=== PATIENT | female | born 1945 | race Caucasian/White ===

== ENCOUNTER 2016-04-25 16:19 | Observation (INO) | payer MEDICARE ==
[~2016-04-25] VITALS: Ht 180.3 cm; Wt 75.3 kg
--- NOTE | 2016-04-25 16:26 | ED.REPORT ---
HPI-Stroke / CVA Apr 25, 2016 ED Provider: Tiago Mahajan MD A 70 year old female with a history of HTN presents to the ED via EMS with AMS. Per EMS, Pt was last seen normal at 1430 by co-workers at the [email or web address] that she works at. At 1500, her friend was talking with her on the phone and noticed slurred speech in the patient. The friend went to her work and found her leaning over her desk and unresponsive. The patient reports that she does not know why she is in the ED. Per daughter, patient has never experienced symptoms like this before and has no history of stroke or NV, but her father had a NV at a young age. It is difficult to obtain history due to patient condition. Upon further questioning the patient admits to taking 10 tablets of 50 mg tramadol and describes this as no suicide attempt and something that she would typically do. She denies any other narcotic use. Nursing Notes Stated Complaint: WEAKNESS, MENTAL STATUS CHANGE Nursing Notes Reviewed: Yes Allergies: Coded Allergies: No Known Allergies (Unverified , 04/25/16) General Time Seen by Provider: 16:39 Chief Complaint Other (AMS) Hx Obtained From: Patient, EMS Unable to Obtain Hx: Mental status Arrived By: Ambulance Time last known well Patient was last seen as normal by co-workers at 1430 today. Sudden in Onset?: Yes Symptom Duration: Since onset Progression Since Onset: Unchanged Recent Healthcare: No recent doctor visit Similar Sx Previous: No Risk Factors )( TPA Administration/Criteria Stroke Thrombolytic Therapy : TPA Considered: Yes TPA Administered Intravenously: No, exclusion criteria (NIH stroke scale 0) NIH Stroke Scale Level of Consciousness: Alert and responsive (0) Ask Month & Age: Both questions right (0) Open/Close Eyes/Hand Automotive Accessory Installer: Performs both tasks (0) Horizontal EO Movements: None (0) Visual Pearson: No visual loss (0) Facial Palsy: Normal symmetry (0) Right Arm Motor Drift (10s): No drift 10 sec (0) Left Arm Motor Drift (10s): No drift 10 sec (0) Right Leg Motor Drift (5s): No drift 5 sec (0) Left Leg Motor Drift (5s): No drift 5 sec (0) Limb Ataxia FNF/Heel-Lauren: No ataxia (0) Sensation (Arms/Legs/Face): No sensory loss (0) Language Aphasia: No aphasia, normal (0) Dysarthria: No dysarthria, normal (0) Extinction/Inattention: No exctinct/inattent (0) (Extinction not testable.) NIHSS Score: 0 Time NIHSS Performed: 16:41 Date NIHSS Performed: Apr 25, 2016 Past Medical History Past Medical History No history of NV. Reports: Hypertension Past Surgical History None reported. Family History Father had NV at young age. Social History Other Social History: Good social support Occupation Works at [email or web address]. Review of Systems Unable to Obtain ROS Mental status Constitutional: Denies: Chills, Fever, Lethargy Cardiovascular: Denies: Chest pain GI: Denies: Abdominal pain Complete sys rev & neg: except as marked. Physical Exam Initial Vital Signs Vital Signs (First) Date Time Temp Pulse Resp B/P Pulse Ox O2 Delivery O2 Flow Rate FiO2 04/25/16 16:35 36.7 76 15 156/63 100 Nasal Cannula 2 Initial VS: Reviewed General/Constitutional: Awake GCS 14 Head / Eyes: Atraumatic, Normocephalic Pupils are small. Neck: Atraumatic, Full range of motion Respiratory / Chest: Atraumatic, Breath sounds NL, Breath sounds = bilat, No respiratory distress, No rales, No rhonchi, No wheezing Cardiovascular: Heart rate NL, Regular rhythm, Heart sounds NL, No murmurs Neuro: Psychomotor retardation. Slow to respond. See NIH stroke scale in Risk. ENT: Atraumatic, Airway patent, Mucous membranes moist Abdomen: Atraumatic, Soft, No guarding, No rebound Upper Extremity / MS: Atraumatic, Non-tender Lower Extremity / Pelvis / MS: Atraumatic, Non-tender Skin: Atraumatic, Color NL, No rash, Warm, Dry Interpretation & Diagnostics Lab Results Interpretation Result Diagram: 04/25/16 1615 04/25/16 1615 Test 04/25/16 16:15 04/25/16 16:48 White Blood Count 13.7th/mm3 (3.8-10.1) Red Blood Count 4.66mil/mm3 (3.90-5.20) Hemoglobin 14.6g/dL (12.0-15.6) Hematocrit 44.1% (35.0-46.0) Mean Corpuscular Volume 94.6fL (81-100) Mean Corpuscular Hemoglobin 31.3pg (27.0-35.0) Mean Corpuscular Hemoglobin Concent 33.1% (32.0-37.0) Red Cell Distribution Width 12.8% (12.3-15.4) Platelet Count 289bil/L (150-400) Neutrophils (%) (Auto) 69.5% (40-74) Lymphocytes (%) (Auto) 21.2% (14-46) Monocytes (%) (Auto) 7.5% (4-12) Eosinophils (%) (Auto) 1.1% (0-5) Basophils (%) (Auto) 0.3% (0-3) Prothrombin Time 10.0sec (8.1-12.5) Prothromb Time International Ratio 0.94ratio Activated Partial Thromboplast Time 23.8sec (22.8-33.0) Sodium Level 140mEq/L (134-144) Potassium Level 3.6mEq/L (3.5-5.2) Chloride Level 99mEq/L (97-108) Carbon Dioxide Level 28mmol/L (18-29) Blood Urea Nitrogen 23mg/dL (8-27) Creatinine 1.15mg/dL (0.57-1.00) Estimat Glomerular Filtration Rate 67mL/min (>59) Glucose Level 98mg/dL (60-99) Calcium Level 9.0mg/dL (8.5-10.1) Total Bilirubin 0.2mg/dL (0.0-1.2) Aspartate Amino Transf (AST/SGOT) 24U/L (0-50) Alanine Aminotransferase (ALT/SGPT) 26U/L (0-32) Alkaline Phosphatase 87U/L (25-165) Troponin T < 0.010ug/L (0.0-0.011) Total Protein 6.9g/dL (6.4-8.4) Albumin 4.1g/dL (3.4-5.0) Alcohol, Quantitative < 10mg/dL (0-10) Urine Color Yellow (YELLOW) Urine Appearance Clear (CLEAR,HAZY) Urine pH 7.0 (5.0-8.0) Urine Specific [place] 1.015 (1.003-1.035) Urine Protein Negativemg/dL (NEG,TRACE) Urine Glucose (UA) Negativemg/dL (NEGATIVE) Urine Ketones Negativemg/dL (NEGATIVE) Urine Occult Blood Negative (NEGATIVE) Urine Nitrite Negative (NEGATIVE) Urine Bilirubin Negative (NEGATIVE) Urine Urobilinogen Normalmg/dL (NORMAL) Urine Leukocyte Esterase Trace (NEGATIVE) Urine RBC 0-2/hpf (0-2) Urine WBC 0-5/hpf (0-5) Urine Epithelial Cells Few/hpf (NONE-MOD) Urine Crystals None seen (NONE SEEN) Urine Bacteria Few/hpf (NONE-FEW) Urine Hyaline Casts Occasional/lpf (NONE) Urine Granular Casts Occasional (NONE SEEN) Urine Waxy Casts None seen (NONE SEEN) Urine Red Blood Cell Casts None seen (NONE SEEN) Urine White Blood Cell Casts None seen (NONE SEEN) Urine Mucus None seen (None Seen) Urine Trichomonas None seen (NONE SEEN) Urine Yeast None (NONE SEEN) Urinalysis Comment None Urine Culture Reflexed Indicated Urine Opiates Screen Negative Urine Methadone Screen Negative Urine Barbiturates Screen Negative Urine Amphetamines Screen Negative Urine Benzodiazepines Screen Negative Urine Cocaine Metabolite Screen Negative Urine Cannabinoids Screen Negative Lab Results Interpretation: CT Brain (TPA) Interpreted by Radiologist. IMPRESSION: No acute intracranial abnormality. Findings relayed to Dr. Mahajan via ER front desk worker staff Nancy on 04.25.16 at 1645 hrs. This study fulfills neurological imaging criteria for inclusion or exclusion of acute stroke therapies based on available published neurological guidelines. Dictated by: Shantelle Linda M.D. on 04/25/2016 at 16:45 Approved by: Shantelle Linda M.D. on 04/25/2016 at 16:47 General Lab Results Interp 1: Labs reviewed ECG Interpretation ECG Interpretation: Sinus rhytm. Rate is 76. Nonspecific T abnormalities, anterior leads. Time: 16:50 Interpreted by: ED physician Re-Eval/Medical Decision Source of Hx: Old records, EMS Re-Evaluation/Progress #1: Time of Eval: 17:03 Re-Evaluation/Progress Note: Rechecked patient. Patient reports taking [address] Cindy Mendieta prescribed 120 pills every 30 days, 4 pills per day. Current bottle has 27 tablets remaining and it was filled on the of this month. Re-Evaluation/Progress #2: Time of Eval: 17:22 Re-Evaluation/Progress Note: Pt updated of plans for admission. She is improving. Consultation #1: Call Returned at: 17:53 Note: Discussed patient case with Dr. Cindy Mendieta's assistant softball coach, explaining that she is not taking medication regiment as directed. Consultation #2: Referral / Consult Name: Neal Trotter MD Consulted With: Hospitalist Call Returned at: 18:04 Hot Strip Mill Inspector: Will see patient, Agrees with eval, Agrees with plan, Accepts admit Counseled Regarding: Diagnosis, Lab results, Need for admission Patient Discharge & Departure Impression: Primary Impression: Overdose Encounter type: initial encounter Injury intent: undetermined intent Qualified Code: T50.904A - Poisoning by unspecified drugs, medicaments and biological substances, undetermined, initial encounter Disposition: ADMITTED TO HOSPITAL Discharge Condition All VS Reviewed: Yes Scribe Attestation Portions of this note were transcribed by Sae Sanchez and Nena Walker. I, , personally performed the history, physical exam, and medical decision-making: I reviewed and confirmed the accuracy for the information in the transcribed note. Signed by: enrique Ponce, 04/25/16 1805. Tiago Mahajan MD Apr 25, 2016 16:26 Sae Sanchez Apr 25, 2016 16:28 Nena Walker Apr 25, 2016 18:08
[2016-04-25 16:35] VITALS: BP 156/63; PULSE 76; RESP 15; O2SAT 100
[2016-04-25 16:38] LABS: BASOPHILS % (AUTO) 0.3 % (0-3); EOSINOPHILS % (AUTO) 1.1 % (0-5); MONOCYTES % (AUTO) 7.5 % (4-12); Mean Corpuscular Hemoglobin 31.3 pg (27.0-35.0); Mean Corpuscular Volume 94.6 fL (81-100); NEUTROPHILS % (AUTO) 69.5 % (40-74); Platelet Count 289 bil/L (150-400)
--- NOTE | 2016-04-25 16:49 | DRSVH ---
PROCEDURE: CT BRAIN (TPA) ([id number]) INDICATIONS: Stroke TECHNIQUE: Noncontrast 4.5 mm thick angled axial sections acquired from the foramen magnum to the vertex, with c oronal reformats. COMPARISON: None. FINDINGS: Image quality: Excellent. CSF spaces: Basal cisterns are patent. No extra-axial fluid collections. The ventricles are symmet [place] in size and shape. Brain: No intracranial bleeds or masses. There is cerebral volume loss for age, with resultant vent ricular and sulcal prominence. There are periventricular and deep white matter chronic small vessel ischemic changes. There is intracranial internal carotid artery atherosclerosis. Skull and face: Calvarium and visualized facial bones appear intact, without suspicious lesions. Sinuses: Visualized sinuses and mastoids are clear. IMPRESSION: No acute intracranial abnormality. Findings relayed to Dr. Mahajan via ER front man sta Nancy on 04.25.16 at 1645 hrs. This study fulfills neurological imaging criteria for inclusion or exclusion of acute stroke therapie s based on available published neurological guidelines. Dictated by: Shantelle Linda M.D. on 04/25/2016 at 16:45 Approved by: Shantelle Linda M.D. on 04/25/2016 at 16:47
[2016-04-25 16:57] LABS: INR 0.94 ratio
[2016-04-25 17:13] LABS: TROPONIN T < 0.010 ug/L (0.0-0.011)
[2016-04-25 17:53] LABS: APPEARANCE,URINE CLEAR (CLEAR,HAZY); COLOR,URINE YELLOW (YELLOW); OCCULT BLOOD,URINE NEGATIVE (NEGATIVE); UROBILINOGEN,URINE NORMAL (NORMAL)
[2016-04-25] MEDS ORDERED: Alum-Mag Hydrox-Simeth 30 mL Suspension PO PRN ×2 (18:20→19:40)
[2016-04-25] MEDS ORDERED: Ondansetron 2 mg/mL 2 mL Inj IVPUSH PRN ×2 (18:20→19:40)
[2016-04-25 18:49] VITALS: BP 168/68; PULSE 74; RESP 20; O2SAT 99
[2016-04-25] MEDS ORDERED: Polyethylene Glycol (PEG) 17 Gm Powder PO PRN (19:40)
[2016-04-25] MEDS ORDERED: Naloxone 0.4 mg/mL 10 mL Inj IVPUSH PRN (19:45)
[2016-04-25] MEDS ORDERED: Acetaminophen IV 1,000 MG in IV Premix 1 EACH IV PRN (19:45)
--- NOTE | 2016-04-25 20:03 | PCM.HPMED ---
Subjective Date of Service Apr 25, 2016 Primary Provider: Admitting Physician: Neal Trotter MD Primary Care Physician: Jennifer Attending Physician: Neal Trotter MD Chief Complaint: AMS History of Present Illness: 70 yo F with h/o chronic pain following multiple accidents resulting in multiple musculoskeletal injuries who presents with AMS following ingestion of Tramadol. Patient is somnolent and daughter (and other reports) provide the history. Patient works a job on her feet all day ([employer]). D. reports patient experiences more pain when on feet all day, and suspect that she takes 2 tabs ( 50mg Tramadol) at a time to help with the pain. Not intentional, and without intent to harm self. D. doubts that she took all '10" at one time. Reports that friend at work found patient slumped over desk and unresponsive. Admin of Narcan in the field woke her up. In the ER, CT head negative, Narcan given for hypoxia and somnolence. Patient is admitted under observation status with expected length of stay less than 2 midnights due to severity of presenting symptoms, risk of adverse event, and complexity of treatment plan. Review of Systems: No review of systems could be obtained given patient's condition. Allergies Coded Allergies: No Known Allergies (Unverified , 04/25/16) Home Medications Per daughter report, med rec not yet completed: Tramadol 50mg 2 tabs BID (confirmed on [facility] SUPERVISOR OF GUIDANCE AND TESTING) Antihypertensives Zoloft PMH Chronic pain in back, hips, knees on Tramadol * horse-riding accidents (blown out knees) * horse-riding accident in which the horse rolled on her and broke her back and pelvis Depression HTN Surgical History No known surgical history, per daughter's report Family History Daughter is not aware of any family history. Social History Hx Alcohol Use: No Hx Substance Use: No Hx Tobacco Use: Yes Smoking Status: Former Smoker (family thinks she still sneaks cigarettes) Living Arrangement: with Family Additional Information Loves working in [employer], and family has tried to get her to stop working d/ t her pain. Exam Vital Signs Vital Sign - Last Date Time Temp Pulse Resp B/P Pulse Ox O2 Delivery O2 Flow Rate FiO2 04/25/16 18:49 36.9 74 20 168/68 99 Room Air 04/25/16 16:35 2 Exam General: Somnolent, No Acute Distress Head: Normocephalic, atraumatic. External ears normal. Eyes: PERRL, EOMI. Anicteric sclerae. Conjunctivae are not injected Mouth: Mouth Normal, Mucous Membranes somewhat dry Neck: Neck supple with full range of motion. No Thyromegaly. Chest & Lungs: Clear to auscultation bilaterally with no crackles, wheezes, or rhonchi. Cardiovascular: Regular Rate/Rhythm, Normal S1, Normal S2, No Murmurs/Rubs/ Gallops Abdomen: Non-tender, Non-distended, No masses, Normoactive bowel tones, Soft Musculoskeletal: Somnolent not moving her extremities Extremities: No cyanosis/clubbing/edema bilat Neurological: No hyperreflexia noted, Babinski's are downward going bilaterally , pupils are equal and reactive to light, grimace with some withdrawal to pain stimulus in all 4 extremities and sternal rub, muscular tone is good throughout Psych: Somnolent Lab and Diagnostics Labs Laboratory Tests 72 Hours Test 04/25/16 16:15 04/25/16 16:48 White Blood Count 13.7th/mm3 (3.8-10.1) Red Blood Count 4.66mil/mm3 (3.90-5.20) Hemoglobin 14.6g/dL (12.0-15.6) Hematocrit 44.1% (35.0-46.0) Mean Corpuscular Volume 94.6fL (81-100) Mean Corpuscular Hemoglobin 31.3pg (27.0-35.0) Mean Corpuscular Hemoglobin Concent 33.1% (32.0-37.0) Red Cell Distribution Width 12.8% (12.3-15.4) Platelet Count 289bil/L (150-400) Neutrophils (%) (Auto) 69.5% (40-74) Lymphocytes (%) (Auto) 21.2% (14-46) Monocytes (%) (Auto) 7.5% (4-12) Eosinophils (%) (Auto) 1.1% (0-5) Basophils (%) (Auto) 0.3% (0-3) Prothrombin Time 10.0sec (8.1-12.5) Prothromb Time International Ratio 0.94ratio Activated Partial Thromboplast Time 23.8sec (22.8-33.0) Sodium Level 140mEq/L (134-144) Potassium Level 3.6mEq/L (3.5-5.2) Chloride Level 99mEq/L (97-108) Carbon Dioxide Level 28mmol/L (18-29) Blood Urea Nitrogen 23mg/dL (8-27) Creatinine 1.15mg/dL (0.57-1.00) Estimat Glomerular Filtration Rate 67mL/min (>59) Glucose Level 98mg/dL (60-99) Calcium Level 9.0mg/dL (8.5-10.1) Total Bilirubin 0.2mg/dL (0.0-1.2) Aspartate Amino Transf (AST/SGOT) 24U/L (0-50) Alanine Aminotransferase (ALT/SGPT) 26U/L (0-32) Alkaline Phosphatase 87U/L (25-165) Total Creatine Kinase 98U/L (21-215) Troponin T < 0.010ug/L (0.0-0.011) Total Protein 6.9g/dL (6.4-8.4) Albumin 4.1g/dL (3.4-5.0) Alcohol, Quantitative < 10mg/dL (0-10) Urine Color Yellow (YELLOW) Urine Appearance Clear (CLEAR,HAZY) Urine pH 7.0 (5.0-8.0) Urine Specific [place] 1.015 (1.003-1.035) Urine Protein Negativemg/dL (NEG,TRACE) Urine Glucose (UA) Negativemg/dL (NEGATIVE) Urine Ketones Negativemg/dL (NEGATIVE) Urine Occult Blood Negative (NEGATIVE) Urine Nitrite Negative (NEGATIVE) Urine Bilirubin Negative (NEGATIVE) Urine Urobilinogen Normalmg/dL (NORMAL) Urine Leukocyte Esterase Trace (NEGATIVE) Urine RBC 0-2/hpf (0-2) Urine WBC 0-5/hpf (0-5) Urine Epithelial Cells Few/hpf (NONE-MOD) Urine Crystals None seen (NONE SEEN) Urine Bacteria Few/hpf (NONE-FEW) Urine Hyaline Casts Occasional/lpf (NONE) Urine Granular Casts Occasional (NONE SEEN) Urine Waxy Casts None seen (NONE SEEN) Urine Red Blood Cell Casts None seen (NONE SEEN) Urine White Blood Cell Casts None seen (NONE SEEN) Urine Mucus None seen (None Seen) Urine Trichomonas None seen (NONE SEEN) Urine Yeast None (NONE SEEN) Urinalysis Comment None Urine Culture Reflexed Indicated Urine Opiates Screen Negative Urine Methadone Screen Negative Urine Barbiturates Screen Negative Urine Amphetamines Screen Negative Urine Benzodiazepines Screen Negative Urine Cocaine Metabolite Screen Negative Urine Cannabinoids Screen Negative Result Diagram: 04/25/16 1615 04/25/16 1615 Microbiology Urine culture pending. X-Rays, CTs and MRIs CT brain negative. 12-lead ECG Unremarkable Assessment & Plan 70 yo F with h/o chronic pain following multiple accidents resulting in multiple musculoskeletal injuries who presents with AMS following ingestion of Tramadol. # Acute encephalopathy d/t Tramadol OD, unintentional, acute. POA -report of taking 500mg over several hours -No evidence of intracranial abnormality on CT -Tox screen is negative -Supportive care -Narcan PRN -continuous pulsox -no need to admin act. charcoal at this time -monitor for serotonin synd. - agitation, tachy, HTN, seizure -Tylenol for pain, and we will avoid narcotics at least tonight -O2 -q4h neuro checks -if HoTN, will admin fluids in addition to maintenance # Leukocytosis without left shift. Present on admission -unclear etiology at this point -We will continue to follow lab -No report of nausea or vomiting according to the patient's daughter -Consideration for chest x-ray # Mildly elevated creatinine at 1.15 without known baseline -Maintenance fluids while she is nothing by mouth -Follow labs # HTN, chronic -continue antihypertensives once we know what they are -Her rates look okay, and we could consider labetalol when necessary -Given her mild elevated creatinine, will avoid enalaprilat # Chronic pain -Manage as above -Tylenol for pain for now -consider k-pad, topicals, etc # Depression -not intentional per reports -continue Zoloft when able to tolerate PO -no need at this time for psych cons, but needs to f/u outpt. PRN meds: Tylenol, bowel, antiemetic (beware over-admin given risk of serotonin synd) Patient is admitted under observation status with expected length of stay less than 2 midnights due to severity of presenting symptoms, risk of adverse event, and complexity of treatment plan. Patient has been receiving rx from Cindy BALDERAS, and most recently Dr. Noé Simmons ([facility]). Pain Evaluation: Adequate Pain Control GI Prophylaxis: Not indicated VTE Prophylaxis: Sub-Q Heparin (Unfractionated) Resuscitation Status: CPR: Attempt Resuscitation Attending Statement The patient was seen and examined together with Dr. Roa on 04/25 and I agree with the history, exam and plan as outlined in the note above. Alvarez Jacobo DO Apr 25, 2016 20:03 Nael Urrutia MD Apr 26, 2016 03:43
[2016-04-25] MEDS: 0.9% Sodium Chloride 1,000 ML IV SCH (20:19)
[2016-04-25 20:22] VITALS: PULSE 80
[2016-04-25 20:29] VITALS: BP 162/77; PULSE 80; RESP 16; O2SAT 87
[2016-04-25 20:33] VITALS: O2SAT 94
--- NOTE | 2016-04-25 21:44 | NUR ---
ADMIT NOTE Pt arrived to [facility] 3029 approx 2029. Pt drowsy, w/ some generalized weakness. Pt awakens easily to touch and voice. Pt able to follow instructions. Pt only able to stay awake for brief questions. Pt able to to tell staff that she needs to urinate. Pt using brief and bedpan at this time, voiding good amt. Admitting MD aware and okay that pt is voiding, prn rausch orders in. Pts daughter helped w/ admit questions. Pt placed on remote telemetry. VS obtained. Pt unable to maintain adequate oxygen saturations on RA, pt placed on 2L humidified oxygen via NC. Pt also placed on CPOx. Pt denies pain at this time. IVF administered. Continue to monitor. Call light in reach. Bed alarm on. Daughter in room. Intentional rounding.
--- NOTE | 2016-04-25 21:50 | NUR ---
MED REC NOT COMPLETED Pt is not able to remain awake enough to provide home medications. Pts daughter only knows that "she takes something for high blood pressure, tramadol for pain and something for depression." Pts daughter states that pt will be able to provide home medication info when pt is more alert. RN asked if other family member could possible bring in a list of home medications. Addendum: 04/26/16 at 0710 by REMY RIVERO RN Pts daughter, Dorina, brought in a handwritten list of pts medications, which pts daughter had written from looking at pts medication bottles at home. List on medications placed in H&P of chart. There is a medication which needs clarified, alert placed on med rec for MD.
[2016-04-26] VITALS (8 sets, daily range): BP systolic 138–159; BP diastolic 63–74; PULSE 78–96; RESP 14–20; O2SAT 92–96
[2016-04-26] MEDS: Heparin 5,000 Unit/mL Inj SUBQ SCH ×3 (00:51→16:55)
[2016-04-26] MEDS ORDERED: SERT100T9 PO (02:55)
[2016-04-26] MEDS ORDERED: AMLO5TAB2 PO (02:55)
[2016-04-26] MEDS ORDERED: SIMV20TA4 PO (02:55)
[2016-04-26] MEDS ORDERED: LEVO100T6 PO (02:55)
[2016-04-26] MEDS ORDERED: TRIA1TAB5 PO (02:58)
--- NOTE | 2016-04-26 07:10 | NUR ---
NEURO Pt has become increasingly more alert, easier to arouse, able to stay awake for longer periods of time. Pt has slept most of shift. Pt able to make needs known. Pt aware she is in hospital. Pt states the last thing she remembers is taking her medications in the am, does not remember losing consciousness or how she got to the hospital. At end of shift, pt requesting to go to BR, assisted up to BR, needed 2 person assist d/t unsteadiness. Will consider BSC if strength and coordination do not improve. Continue to monitor. Call light in reach. Bed alarm on. Family in room. Intentional rounding.
[2016-04-26 07:19] LABS: BASOPHILS % (AUTO) 0.4 % (0-3); EOSINOPHILS % (AUTO) 1.4 % (0-5); MONOCYTES % (AUTO) 8.3 % (4-12); Mean Corpuscular Hemoglobin 30.9 pg (27.0-35.0); Mean Corpuscular Volume 94.9 fL (81-100); NEUTROPHILS % (AUTO) 63.1 % (40-74); Platelet Count 254 bil/L (150-400)
[2016-04-26 07:36] LABS: Magnesium 1.9 mg/dL (1.6-2.6); Phosphorus 2.8 mg/dL (2.5-4.9)
[2016-04-26] MEDS: 0.9% Sodium Chloride 1,000 ML IV SCH ×2 (08:13→20:01)
--- NOTE | 2016-04-26 10:19 | NUR ---
Evaluation completed. Please go to "Notes" then click on "Assessments and Notes" (bottom left corner of screen). Then select appropriate discipline tab on top of screen.
--- NOTE | 2016-04-26 14:50 | NUR ---
MENTATION P-Patient appears tired, sleeping and resting most of shift. I-Upon questioning patient is appropriate and oriented x4, cooperative although appears somewhat passive. E- MD aware and will continue to monitor, toxicology screen negative. Patient denies any knowledge to events that lead her to hospital. CT negative. Diet advanced to soft per speech therapy. Addendum: 04/26/16 at 1549 by ABIGAIL RODGERS RN LABS- K+ 3.4, CO2 31, WBC 10.2 NEURO-LOC X3, CT(-), sleepy CVS-SR 80's, BP 144/70 PLUM-RA 92% GI-Soft diet, denies nausea -[facility] SKIN-WNL PAIN-Denies IV -NS 80 PLAN- Monitor changes in LOC
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
--- NOTE | 2016-04-26 20:23 | NUR ---
Case Management: Attempted to provide JACKSON at 1999--room dark, pt appeared to be sleeping. Will try again tomorrow. Preethi Harrington RN
[2016-04-27] MEDS: Heparin 5,000 Unit/mL Inj SUBQ SCH ×2 (00:20→08:30)
[2016-04-27 00:22] VITALS: BP 180/73; PULSE 79; RESP 18; O2SAT 94
[2016-04-27] MEDS ORDERED: lorazepam (00:48)
[2016-04-27] MEDS ORDERED: TRAM50TA2 PO (00:48)
--- NOTE | 2016-04-27 00:48 | NUR ---
HOME MEDICATIONS Pts daughter, Dorina, spoke w/ RN regarding pts home medications and very puzzled that tramadol was the cause of pts reason for admission. Pts daughter states, "My mom also takes lorazepam, she was so out of it, she couldn't tell you, and I think if you know this, it could help figure out what happened." Pts daughter not sure of dose, will try to get info and inform staff so pts med rec can be completed. Per pts daughter, "My mom is 70, it's possible that she accidentally took the wrong pills, maybe she took the lorazepam instead of the tramadol or both. And the pills that I found at home are all broken up, so who knows what she takes. I just think that maybe my mom needs to see somebody to figure out if these are the meds that she should really be taking." Per pt, "I take a few of my pills, in my lunch bag, just what I need for the day, in the original bottle, and leave the rest at home in a baggy." If this is true, it is possible, that at time of arrival to ER, staff only found a few pills in the bottle, and assumed that pt had taken more pills, whereas the other pills where actually at home in a separate baggy.
[2016-04-27 06:19] VITALS: BP 188/72; PULSE 80; RESP 20; O2SAT 96
[2016-04-27 06:48] LABS: BASOPHILS % (AUTO) 0.3 % (0-3); EOSINOPHILS % (AUTO) 0.5 % (0-5); MONOCYTES % (AUTO) 4.9 % (4-12); Mean Corpuscular Hemoglobin 30.9 pg (27.0-35.0); Mean Corpuscular Volume 93.1 fL (81-100); Platelet Count 273 bil/L (150-400)
--- NOTE | 2016-04-27 07:53 | PCM.DIMED ---
Sabina Duong DO 04/27/16 0753: Discharge Instructions Date of Service Apr 27, 2016 Dates of Hospitalization Apr 25, 2016 at 19:29 Discharge Diagnosis Discharge Diagnosis 1. Acute encephalopathy d/t Tramadol OD, unintentional, present on admission, resolved. 2. Leukocytosis without left shift, present on admission, resolved. 3. Mildly elevated creatinine at 1.15 without known baseline, present on admission, resolved. 4. HTN, chronic, stable. 5. Chronic pain, stable. 6. Depression, stable. Medication Instructions Please take Tramadol PRESCRIBED to avoid future unintentional overdose: Tramadol, 50 mg tablet, take 2 tablets (100 mg) twice a day as needed for pain. Diet No restrictions Activity No restrictions Call your provider Fever or Chills, Shortness of breath, Bleeding, Chest pain, Vomitting, Excessive diarrhea, Weakness (unilateral) Patient Instructions Follow-up plan Please follow up with your PCP, Dr. Noé Maloney within 1-2 weeks. Follow-up with PCP in: 2 weeks Domi Barajas DO 04/27/16 1310: Discharge Instructions Medication Instructions Do not take more than the prescribed dosage. If you have increased pain please call your doctor for further recommendations Patient Instructions Follow-up Provider: Sabina Duong DO Follow-up with PCP in: 1 week (Please call the number below to make an appointment) Additional Information [facility] [address] [place] [id number] Attending's Statement The patient was seen and examined together with Dr. Duong on 04/25/16 and I have added additional information to the note above. Sabina Duong DO Apr 27, 2016 07:53 Domi Barajas DO Apr 27, 2016 13:10
[2016-04-27 08:04] VITALS: BP 183/79; PULSE 60; RESP 20; O2SAT 93
[2016-04-27] MEDS: 0.9% Sodium Chloride 1,000 ML IV SCH (08:59)
--- NOTE | 2016-04-27 10:31 | NUR ---
Case Management- JACKSON explained and signed by patient. Copy given to patient and orginal placed in chart. Claudine KNOTT RN
[2016-04-27] MEDS ORDERED: Labetalol 5 mg/mL 4 mL Inj IVPUSH ONE (10:35)
--- NOTE | 2016-04-27 10:59 | NUR ---
IV labetalol 1x IV labetalol ordered but held d/t pts MANUAL BP 160/70 MD notified, asked to hold med.
[2016-04-27] MEDS ORDERED: Trimethoprim-Sulfa 160 mg-800 mg Tablet PO ONE (11:55)
--- NOTE | 2016-04-27 12:29 | NUR ---
Social Work: CD Assessment Attempt Data & Assessment: Patient is a 68 y/o female that is on her second day of hospitalization for tramadol OD per H&P. Benefits Analyst met with patient and attempted to complete initial assessment. Patient answered a few question, but would not open her eyes and declined C.D resources. Patient reported that she does not have any history of substance abuse or family history of substance abuse. Benefits Analyst spoke with patient's physician Dr. Domi Barajas and she does not think that the patient's tramadol OD was intentional. SW will continue to follow patient. Plan: Patient will discharge home with family and no needs. Family will transfer patient home via POV. Benefits Analyst will continue to follow. Viji Harding LMSW, ACJaswant
[2016-04-27 13:26] VITALS: BP 175/64; PULSE 86; RESP 16; O2SAT 96
[2016-04-27] MEDS ORDERED: SULF1TAB35 PO (13:34)
[2016-04-27 14:15] VITALS: BP 154/85
--- NOTE | 2016-04-27 14:45 | NUR ---
Discharge Pt d/c home with daughter on wc by and aide at 1435. Pt medicated for pain prior to leaving. IV x2 d/c. All personal belongings taken home including home meds from pharmacy. Discharge info discussed with pt, all questions answered. VSS.
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
--- NOTE | 2016-04-27 17:37 | PCM.PROC ---
Procedure Note Date of Service: Apr 27, 2016 Procedure: Procedure: Osteopathic Manipulative Treatment Subjective: Patient is a 62-year-old female who is on chronic low back pain. Patient states that her back pain has increased significantly and feels that it may be secondary to the mattress that she has been sleeping on here in the hospital. Patient states that nothing makes the pain better and continues and lying in bed makes it worse. The patient describes the pain as 10 at 10. Risks and benefits of OMT were explained to the patient and verbal consent obtained. Osteopathic Structural Exam: Lumbars: L3 through L5 extended rotated right side bent right Pelvis: Anterior right innominate Sacrum: Right SI joint restriction Upper extremities: Latissimus dorsi hypertonicity on the right greater than left Lower extremities:Psoas tender point on the right Patient responded well to treatment. It seemed that her low back pain had significantly improved after treatment. Osteopathic treatment modalities used: Myofascial release, Muscle Energy, BLT, and soft tissue technique Domi Barajas DO Apr 27, 2016 17:37
== END 2016-04-27 14:34 | disposition home or self-care (01) ==
LOC: SED 16:19 → INTOOBSV 19:29 → MPC 19:29 → OBSVTOIN 19:29
PROVIDERS: ADMIT Family Medicine; ATTEND Family Medicine
DX: T40.4X1A Poisoning by other synthetic narcotics, accidental (unintentional), initial encounter (principal); G92 Toxic encephalopathy; Y92.89 Other specified places as the place of occurrence of the external cause; D72.829 Elevated white blood cell count, unspecified; R94.4 Abnormal results of kidney function studies; I10 Essential (primary) hypertension; G89.4 Chronic pain syndrome; F45.42 Pain disorder with related psychological factors; F11.20 Opioid dependence, uncomplicated; F32.9 Major depressive disorder, single episode, unspecified; Z87.891 Personal history of nicotine dependence
CPT/HCPCS: 36415; 70450; 80053; 81000; 81002; 82308; 82550; 82948; 83735; 84100; 84484; 85025; 85610; 85730; 87086; 92610; 93005; 96374; 98927; 99285; G0378; G0480; J1644; J2310; J7030